=== PATIENT | female | born 1990 | race American Indian/Alaskan Native ===

== ENCOUNTER 2021-10-06 21:56 | Emergency (ER) | payer SELFPAY ==
--- NOTE | 2021-10-07 04:12 | Emergency Department Report ---
ED Psych HPI - General Chief Complaint: Psych Stated Complaint: MH Source: patient, family Mode of arrival: Ambulatory - History of Present Illness Initial Comments: Patient is 30 years old female with history of bipolar and schizophrenia. Patient brought to the emergency room by her family for mental health evaluation. Family stated that patient has been very paranoid. They also reported that she has decreased appetite and she started losing weight. Family also reported that patient thinking that the celebrities on social media are speaking bad about her. Patient lost her mother 2 years ago. Patient currently denying any suicidal homicidal ideation. No visual or auditory hallucination. MD Complaint: altered mental status - Related Data Allergies Allergy/AdvReac Type Severity Reaction Status Date / Time No Known Allergies Allergy Unverified 10/06/21 22:11 ED Review of Systems ROS: Stated complaint: MH Other details as noted in HPI Comment: All other systems reviewed and negative Constitutional: denies: chills, fever Respiratory: denies: cough, shortness of breath, SOB with exertion, SOB at rest Cardiovascular: denies: chest pain, palpitations Gastrointestinal: denies: abdominal pain, nausea, vomiting Musculoskeletal: denies: back pain Psychiatric: denies: homicidal thoughts, suicidal thoughts ED Physical Exam - General Limitations: No Limitations General appearance: alert, in no apparent distress, anxious - Head Head exam: Present: atraumatic, normocephalic - Eye Eye exam: Present: normal appearance - ENT ENT exam: Present: normal exam, normal orophraynx, mucous membranes moist - Neck Neck exam: Present: normal inspection, full ROM. Absent: tenderness, meningismus - Respiratory Respiratory exam: Present: normal lung sounds bilaterally - Cardiovascular Cardiovascular Exam: Present: regular rate, normal rhythm, normal heart sounds - GI/Abdominal GI/Abdominal exam: Present: soft, normal bowel sounds. Absent: distended, tenderness, guarding, rebound, rigid, organomegaly, mass, bruit, pulsatile mass, hernia - Extremities Exam Extremities exam: Present: normal inspection, full ROM, normal capillary refill. Absent: tenderness, pedal edema, joint swelling, calf tenderness - Back Exam Back exam: Present: normal inspection, full ROM. Absent: CVA tenderness (R), CVA tenderness (L) - Neurological Exam Neurological exam: Present: alert, oriented X3, CN II-XII intact, normal gait, reflexes normal. Absent: motor sensory deficit - Psychiatric Psychiatric exam: Present: anxious. Absent: agitated, homicidal ideation, suicidal ideation - Skin Skin exam: Present: warm, intact, normal color ED Course Vital Signs 10/06/21 22:00 Temperature 97.8 F Pulse Rate 94 H Respiratory 16 Rate Blood Pressure 104/65 [Right] O2 Sat by Pulse 97 Oximetry ED Medical Decision Making - Lab Data Result diagrams: 10/07/21 04:22 10/07/21 04:22 - Medical Decision Making Patient is 30 years old female with history of bipolar and schizophrenia. Patient brought to the emergency room by her family for mental health evaluation. Family stated that patient has been very paranoid. They also reported that she has decreased appetite and she started losing weight. Family also reported that patient thinking that the celebrities on social media are speaking bad about her. Patient lost her mother 2 years ago. Patient currently denying any suicidal homicidal ideation. No visual or auditory hallucination. Labs reviewed and is unremarkable however urinalysis and urine drug screen is still pending. Patient is medically cleared to be evaluated by our psychiatric team. Critical care attestation.: If time is entered above; I have spent that time in minutes in the direct care of this critically ill patient, excluding procedure time. ED Disposition Clinical Impression: Paranoid delusion, Schizophrenia Is pt being admited?: No Condition: Stable Referrals: JIMMY GARG MD [Primary Care Provider] - 3-5 Days
[2021-10-07 04:57] LABS: Basophils # (Auto) 0.1 K/mm3 (0.0-0.1); Basophils % (Auto) 1.3 % (0.0-1.8); Blood Urea Nitrogen 15 mg/dL (7-17); Calcium 9.4 mg/dL (8.4-10.2); Eosinophils # (Auto) 0.2 K/mm3 (0.0-0.4); Eosinophils % (Auto) 3.6 % (0.0-4.3); Hematocrit 38.3 % (30.3-42.9); Hemoglobin 13.5 gm/dl (10.1-14.3); Hemolysis Index 30; Lymphocytes # (Auto) 2.2 K/mm3 (1.2-5.4); Lymphocytes % (Auto) 46.1 % (13.4-35.0); Mean Corpuscular HGB Conc 35 % (30-34); Mean Corpuscular Volume 99 fl (79-97); Monocytes # (Auto) 0.3 K/mm3 (0.0-0.8); Monocytes % (Auto) 6.1 % (0.0-7.3); Platelet Count 287 K/mm3 (140-440); Red Blood Count 3.88 M/mm3 (3.65-5.03); Red Cell Distribution Width 12.9 % (13.2-15.2)
[2021-10-07 05:05] LABS: BUN/Creatinine Ratio 25
[2021-10-07 08:57] VITALS: BP 98/70
--- NOTE | 2021-10-07 10:26 | Consultation ---
History of Present Illness - Reason for Consult Consult date: 10/07/21 Reason for consult: psychosis - History of Present Psychiatric Illness HPI: Patient is 30 years old female with history of bipolar and schizophrenia. Patient brought to the emergency room by her family for mental health evaluation. Family stated that patient has been very paranoid. They also reported that she has decreased appetite and she started losing weight. Family also reported that patient thinking that the celebrities on social media are speaking bad about her. Patient lost her mother 2 years ago. Patient currently denying any suicidal homicidal ideation. No visual or auditory hallucination. The patient was seen today. She is calm and cooperative. She is lucid. She's quiet. She says she's been "depressed on and off since losing her mom 2 years ago." The patient says her family felt like she needed an evaluation. She says "I just need a therapist. I don't need a hospital." She says "things have been hard since losing my mom. But I just need a therapist." She denies a past history of psych, although it is documented history of bipolar and schizophrenia. The patient denies SI/HI or ever having an attempt. She denies being on any psych meds. I discuss with her the need to be on something to help get through what she's going through, she agrees that "it might be helpful." She denies hallucinations. She says she lives with her family and state they are jimenes pportive, when asked. She denies any illicit drug use, outside of THC occasionally. She denies alcohol or nicotine use. PAST PSYCHIATRIC HISTORY Diagnoses: Denies Suicide attempts or Self-harm behavior: Denies Prior psychiatric hospitalizations: Denies Substance Abuse history: Denies Previous psychiatric medications tried: Denies Outpatient treatment: Denies PAST MEDICAL HISTORY: None reported Family Psychiatric History: None reported or documented SOCIAL HISTORY Living arrangement: states she lives with family Marital status: Single Unemployed REVIEW OF SYSTEMS Constitutional: Negative for weight loss ENT: Negative for stridor Respiratory: Negative for cough or hemoptysis All other systems reviewed and are negative MENTAL STATUS EXAMINATION General Appearance and Behavior: Age appropriate, good hygiene, wearing appropriate clothes, good eye contact, calm, cooperative Cooperation: Participating/engaged, but Guarded Psychomotor Behavior: Psychomotor normal Mood: depressed Affect and affective range: congruent with stated mood Thought Process: goal directed Thought Content: none Speech: normal tone and pace Suicidal Ideation: Denies Homicidal Ideation: Denies Hallucinations: Denies Delusions: yes Impulse Control: Limited Insight and Judgment: Poor insight and judgment Memory: Poor Attention: Divided Orientation: Alert, oriented Assessment and Plan Bipolar Disorder Treatment Plan Lexapro 10mg po daily Seroquel 25mg po BID First dose now Medical: per primary Disposition: Do not recommend acute psychiatric inpatient treatment. The patient understands that if SI/HI or any fear of endangerment are to arise she is to seek immediate assistance. Securities Supervisor to give all necessary resources The patient to follow up in 7 to 14 days upon discharge including med management and CBT Will sign off. Thanks Case staffed with Dr. Painter. Medications and Allergies Allergies Allergy/AdvReac Type Severity Reaction Status Date / Time No Known Allergies Allergy Unverified 10/06/21 22:11 Home Medications Medication Instructions Recorded Confirmed Last Taken Type Escitalopram [Lexapro] 10 mg PO DAILY #30 tablet 10/07/21 Unknown Rx QUEtiapine [SEROquel] 25 mg PO BID #60 tablet 10/07/21 Unknown Rx Mental Status Exam - Vital signs Last Vital Signs Temp 98.2 F 10/07/21 08:56 Pulse 75 10/07/21 08:56 Resp 18 10/07/21 08:56 BP 98/70 10/07/21 08:56 Pulse Ox 100 10/07/21 09:50 Results Result Diagrams: 10/07/21 04:22 10/07/21 04:22 Abnormal lab results 10/07/21 10/07/21 10/07/21 Range/Units 04:22 04:22 04:22 MCV 99 H (79-97) fl MCH 35 H (28-32) pg MCHC 35 H (30-34) % RDW 12.9 L (13.2-15.2) % Lymph % (Auto) 46.1 H (13.4-35.0) % Salicylates < 0.3 L (2.8-20.0) mg/dL Acetaminophen 5.0 L (10.0-30.0) ug/mL All other labs normal.
[2021-10-07] MEDS ORDERED: SERTRALINE 25 MG TAB ONE (10:41)
[2021-10-07] MEDS ORDERED: ESCITALOPRAM 10 MG TAB PO SCH (11:00)
[2021-10-07] MEDS ORDERED: QUEtiapine 25 MG TAB PO SCH (11:00)
== END 2021-10-07 12:26 | disposition home or self-care (01) ==
LOC: ED 21:56
DX: F22 Delusional disorders (principal); F20.9 Schizophrenia, unspecified
CPT/HCPCS: 36415; 80048; 80320; 84703; 85025; 99284; G0480